=== PATIENT | female | born 1955 | race African-American/Black ===

== ENCOUNTER 2017-08-21 11:34 | Emergency (ER) | payer MEDICAID, OTHER ==
[2017-08-21 12:03] VITALS: BP 141/85
--- NOTE | 2017-08-21 12:21 | UC ---
Neck Pain HPI - HPI Summary HPI Summary: 62 year old female with neck pain. c/o of stiff neck for the past 3 days. She states and demonstrates the inability to turn her head to either side also to flex or extend her neck. Denies any recent illness or fever, injury, trauma or any activities that would strain her neck. Pt feels "I have slept wrong, I have a special pillow and must have not slept on it right". she does state a past hx of stiff neck . Also c/o of posterior headache since she woke up this morning. [ End ] - History of Current Complaint Chief Complaint: UCBackPain Stated Complaint: NECK STIFFNESS Time Seen by Provider: 08/21/17 12:07 Hx Obtained From: Patient Mechanism Of Injury: No Known Trauma Timing: Intermittent Episodes Onset/Duration: Sudden Onset Severity: Severe Pain Intensity: 10 Character: Spasmotic Aggravating Factors: Movement Alleviating Factors: Nothing Associated Signs & Symptoms: Positive: Negative Related History: Similar Episode/Dx As: - 2 years ago - Risk Factors Risk Factors For Cervical Spine Injury: Posterior Midline Cervical Spine Tenderness - Allergies/Home Medications Allergies/Adverse Reactions: Allergies Allergy/AdvReac Type Severity Reaction Status Date / Time No Known Allergies Allergy Verified 08/21/17 12:04 Home Medications: Home Medications Acetaminophen [Acetaminophen Extra Strength] 1,000 mg PO ONCE 08/21/17 [History Confirmed 08/21/17] PMH/Surg Hx/FS Hx/Imm Hx Previously Healthy: Yes - Surgical History Surgical History: Yes Surgery Procedure, Year, and Place: x 3 - Family History Known Family History: Positive: Diabetes - Social History Lives: With Family Alcohol Use: None Substance Use Type: Marijuana Substance Use Comment - Amount & Last Used: occ usage Smoking Status (MU): Heavy Every Day Tobacco Smoker Type: Cigarettes Amount Used/How Often: 1/2 ppd Length of Time of Smoking/Using Tobacco: since age 16 Have You Smoked in the Last Year: Yes Review Of Systems Musculoskeletal: Positive: Arthralgia, Decreased ROM All Other Systems Reviewed And Are Negative: Yes Physical Exam Triage Information Reviewed: Yes Appearance: Well-Appearing, Well-Nourished, Pain Distress - mild Vital Signs: Initial Vital Signs Temp 97.9 F 08/21/17 11:52 Pulse 63 08/21/17 11:52 Resp 16 03/31/18 11:52 BP 141/85 08/21/17 11:52 Pulse Ox 100 08/21/17 11:52 Vital Signs Reviewed: Yes Respiratory Exam: Normal Cardiovascular Exam: Normal Musculoskeletal: Positive: ROM Limited @ - reduction in ROM in all directions. tenderness to palpation diffusely posterior cervical spine/ paraspinals / SCM . Neurological Exam: Normal Neurological: Positive: Abnormal Muscle Tone - hypertonic in c spine. no low back pain. no tenderness to spine in the lumbar region. Psychological Exam: Normal Skin Exam: Normal Diagnostics - Laboratory Diagnostic Studies Completed/Ordered: IMPRESSION: Degenerative spondylosis and facet joint osteoarthritis. read by rads Neck Pain Course/Dx - Course Course Of Treatment: APAP/Heat/flexeril prn (aware of SE) - f/u PCP to discuss PT . IMPRESSION: Degenerative spondylosis and facet joint osteoarthritis on xray and read by rads - Differential Dx/Diagnosis Differential Dx/HQI/PQRI: Arthritis, Cervical Fracture, Sprain, Strain, Torticollis Provider Diagnoses: cervical spine muscle spasms Discharge - Sign-Out/Discharge Documenting (check all that apply): Discharge - Discharge Plan Condition: Good Disposition: HOME Prescriptions: Cyclobenzaprine TAB* [Flexeril 10 MG TAB*] 10 mg PO BID PRN #20 tab PRN Reason: Spasms Patient Education Materials: Cervical Strain (ED) Referrals: AIDAN Hale [Primary Care Provider] - 4 Days - Billing Disposition and Condition Condition: GOOD Disposition: HOME
--- NOTE | 2017-08-21 12:54 | RAD ---
Indication: 3 days neck pain and decreased range of motion. Comparison: No relevant prior exams available on the [facility] PACS for comparison. Technique: AP, open-mouth odontoid, and lateral views cervical spine. Report: Normal cervical spine alignment. Negative for fracture. Multilevel degenerative spondylosis. Advanced disc space narrowing at C5-C6 and C6-C7 with associated reactive subchondral sclerosis. Multilevel predominant mild facet joint osteoarthritis. Unremarkable prevertebral soft tissue contours. IMPRESSION: Degenerative spondylosis and facet joint osteoarthritis.
== END 2017-08-21 13:11 | disposition home or self-care (01) ==
LOC: UCCORT 11:34
DX: M62.838 Other muscle spasm (principal); F17.210 Nicotine dependence, cigarettes, uncomplicated
CPT/HCPCS: 72040; 99212; G0463

== ENCOUNTER 2017-10-08 10:45 | Emergency (ER) | payer OTHER ==
[2017-10-08 11:11] VITALS: BP 155/91
[2017-10-08] MEDS ORDERED: Cyclobenzaprine TAB* 10 MG PO ONE (11:32)
--- NOTE | 2017-10-08 11:40 | ED ---
Neck Pain - HPI Summary HPI Summary: 62 yr old female with the complaint of neck pain. Onset of neck pain initially in July without any specific injuries. She felt she slept on it wrong then. She came here, had xrays showing DJD and was prescribed meds, never followed up with PMD. Took meds and it resolved after a few days. For two days now she has the same symptoms again. She feels like she slept wrong, her neck hurts her worse with moving her head side to side or flex/ extend. No falls, accidents. No fever or chills. She has pain that is moderate, feels like stiffness. No bowel or bladder incontinence. No focal neurological deficits. - History of Current Complaint Chief Complaint: UCBackPain Stated Complaint: NECK PAIN Time Seen by Provider: 10/08/17 11:17 Pain Intensity: 10 - Allergies/Home Medications Allergies/Adverse Reactions: Allergies Allergy/AdvReac Type Severity Reaction Status Date / Time No Known Allergies Allergy Verified 10/08/17 11:11 PMH/Surg Hx/FS Hx/Imm Hx - Surgical History Surgery Procedure, Year, and Place: x 3 Infectious Disease History: No Infectious Disease History: Denies: Traveled Outside the [place] in Last 30 Days - Family History Known Family History: Positive: Diabetes - Social History Occupation: Employed Full-time Alcohol Use: None Substance Use Type: Reports: Marijuana Substance Use Comment - Amount & Last Used: occ usage Smoking Status (MU): Heavy Every Day Tobacco Smoker Type: Cigarettes Amount Used/How Often: 1/2 ppd Length of Time of Smoking/Using Tobacco: since age 16 Have You Smoked in the Last Year: Yes Review of Systems Constitutional: Negative Positive: Other - neck pain All Other Systems Reviewed And Are Negative: Yes Physical Exam Triage Information Reviewed: Yes Vital Signs On Initial Exam: Initial Vitals Temp Pulse Resp BP Pulse Ox 98.1 F 64 16 155/91 99 10/08/17 10:59 10/08/17 10:59 10/08/17 10:59 10/08/17 10:59 10/08/17 10:59 Vital Signs Reviewed: Yes Appearance: Positive: Well-Appearing, Well-Nourished Skin: Positive: Skin Color Reflects Adequate Perfusion Head/Face: Positive: Normal Head/Face Inspection Eyes: Positive: EOMI ENT: Positive: Normal ENT inspection Neck: Positive: Supple, Tenderness @ - c spine about levels 4/5/6, no step off, no obvious swelling. Respiratory/Lung Sounds: Positive: Clear to Auscultation, Breath Sounds Present Cardiovascular: Positive: RRR. Negative: Murmur Abdomen Description: Positive: Nontender Musculoskeletal: Positive: Strength/ROM Intact Neurological: Positive: Sensory/Motor Intact, Alert, Oriented to Person Place, Time, CN Intact II-III, Normal Gait, Speech Normal Psychiatric: Positive: Normal - Randa Coma Scale Best Eye Response: 4 - Spontaneous Best Motor Response: 6 - Obeys Commands Best Verbal Response: 5 - Oriented Coma Scale Total: 15 Diagnostics - Vital Signs Vital Signs Temp Pulse Resp BP Pulse Ox 10/08/17 10:59 98.1 F 64 16 155/91 99 - Laboratory Lab Statement: Any lab studies that have been ordered have been reviewed, and results considered in the medical decision making process. - CT cervical spine CT Interpretation: Positive (See Comments) - DJD and spinal stenosis multiple levels. CT Interpretation Completed By: Radiologist Neck Course/Dx - Course Course Of Treatment: 62 yr old with DJD and multiple levels of spinal stenosis. Recommend FU with PMD , ortho referral and BP recheck. - Diagnoses Provider Diagnoses: Hypertension, DJD (degenerative joint disease), cervical Discharge - Sign-Out/Discharge Documenting (check all that apply): Discharge/Admit/Transfer - Discharge Plan Condition: Good Disposition: HOME Prescriptions: Cyclobenzaprine TAB* [Flexeril 10 MG TAB*] 10 mg PO BID PRN #10 tab PRN Reason: Pain Patient Education Materials: Hypertension (ED), Cervical Spinal Stenosis (ED), Arthritis (ED) Referrals: AIDAN Hale [Primary Care Provider] - 2 Days Noe Kinsey MD [Medical Doctor] - - Billing Disposition and Condition Condition: GOOD Disposition: HOME
--- NOTE | 2017-10-08 11:53 | RAD ---
HISTORY: Pain, neck pain COMPARISONS: None TECHNIQUE: Multiple contiguous axial CT scans were obtained of the cervical spine without intravenous contrast, with coronal and sagittal multiplanar reformations. FINDINGS: BRAIN: The visualized brain is unremarkable CENTRAL CANAL: Evaluation of the central canal is limited on CT technique; however, there is no obvious canalicular mass or epidural hemorrhage. ALIGNMENT: The alignment is normal, without subluxation or dislocation. VERTEBRAL BODIES: There is anterolateral marginal osteophyte formation most pronounced at C5-C6 and C6-C7. JOINTS: There is diffuse uncovertebral and facet osteoarthritis MUSCULATURE: Unremarkable INTERVERTEBRAL DISCS: There is diffuse loss of intervertebral disc height. AXIAL IMAGES: C2-C3: There is no osseous neural foraminal narrowing or central canal stenosis. C3-C4: There is a central disc protrusion measuring 0.3 cm in depth. There is no significant neural foraminal narrowing or central canal stenosis C4-C5: There is left greater on the right facet hypertrophy. There is moderate left neural foraminal narrowing. There is no central canal stenosis. C5-C6: There is a broad-based disc osteophyte complex with bilateral uncovertebral and facet hypertrophy. There is severe bilateral neural foraminal narrowing. There is moderate narrowing of the central canal. C6-C7: There is a broad-based disc osteophyte complex with bilateral uncovertebral and facet hypertrophy. There is severe bilateral neural foraminal narrowing. There is mild narrowing of the central canal. C7-T1: There is no osseous neural foraminal narrowing or central canal stenosis. SOFT TISSUES: The visualized soft tissues of the neck are unremarkable. The prevertebral fat stripe is preserved. OTHER: None. IMPRESSION: 1. DEGENERATIVE DISC DISEASE AND OSTEOARTHRITIS. 2. THERE IS MODERATE NARROWING OF THE CENTRAL CANAL AT C5-C6 WITH MILD NARROWING AT C6-C7. 3. THERE IS A CENTRAL DISC PROTRUSION AT C3-C4. 4. THERE IS MULTILEVEL NEURAL FORAMINAL NARROWING DESCRIBED ABOVE.
== END 2017-10-08 12:43 | disposition home or self-care (01) ==
LOC: UCCORT 10:45
DX: M47.812 Spondylosis without myelopathy or radiculopathy, cervical region (principal); M50.323 Other cervical disc degeneration at C6-C7 level; M50.21 Other cervical disc displacement, high cervical region; I10 Essential (primary) hypertension; F17.210 Nicotine dependence, cigarettes, uncomplicated
CPT/HCPCS: 72125; 99212; A9270-GY; G0463

== ENCOUNTER 2018-09-07 11:02 | Emergency (ER) | payer OTHER ==
[2018-09-07 12:09] VITALS: BP 130/85
--- NOTE | 2018-09-07 12:43 | UC ---
Skin Complaint HPI - HPI Summary HPI Summary: 63-year-old woman comes in with a chief complaint of generalized itching and rash. This all started 2 weeks ago. Patient had taken 2 days worth of prednisone for arthritis in her neck and several days after stopping the prednisone the Sx started. It is generalized on abdomen chest back arms and legs. She reports that years ago she had scabies and this reminds her of scabies. No fevers or chills. Normal bowel and urine patient feels normal and well otherwise. Is not on any other medications. She recently used a new body lotion that did make her itch. She stopped using that right away and has been more than 2 weeks. No sore throat or shortness of breath. - History of Current Complaint Chief Complaint: UCSkin Time Seen by Provider: 09/07/18 12:28 Stated Complaint: SKIN COMPLAINT Pain Intensity: 0 - Allergy/Home Medications Allergies/Adverse Reactions: Allergies Allergy/AdvReac Type Severity Reaction Status Date / Time No Known Allergies Allergy Verified 09/07/18 12:04 PMH/Surg Hx/FS Hx/Imm Hx Previously Healthy: Yes - Surgical History Surgical History: Yes Surgery Procedure, Year, and Place: x 3 - Family History Known Family History: Positive: Diabetes - Social History Alcohol Use: None Substance Use Type: Marijuana Substance Use Comment - Amount & Last Used: daily Smoking Status (MU): Heavy Every Day Tobacco Smoker Type: Cigarettes Amount Used/How Often: 1/2 ppd Length of Time of Smoking/Using Tobacco: since age 16 Have You Smoked in the Last Year: Yes Review of Systems All Other Systems Reviewed And Are Negative: Yes Constitutional: Positive: Negative Skin: Positive: Other - see hpi Eyes: Positive: Negative ENT: Positive: Negative Respiratory: Positive: Negative Cardiovascular: Positive: Negative Gastrointestinal: Positive: Negative Genitourinary: Positive: Negative Motor: Positive: Negative Neurovascular: Positive: Negative Musculoskeletal: Positive: Negative Neurological: Positive: Negative Psychological: Positive: Negative Is Patient Immunocompromised?: No Physical Exam Triage Information Reviewed: Yes Appearance: Well-Appearing, No Pain Distress, Well-Nourished Vital Signs: Initial Vital Signs Temp 97.5 F 09/07/18 12:05 Pulse 75 09/07/18 12:05 Resp 16 09/07/18 12:05 BP 130/85 09/07/18 12:05 Pulse Ox 100 09/07/18 12:05 Vital Signs Reviewed: Yes Eye Exam: Normal Eyes: Positive: Conjunctiva Clear Neck: Positive: Supple Respiratory: Positive: No respiratory distress Musculoskeletal Exam: Normal Musculoskeletal: Positive: Strength Intact, ROM Intact Neurological Exam: Normal Neurological: Positive: Alert, Muscle Tone Normal Psychological Exam: Normal Psychological: Positive: Age Appropriate Behavior Skin: Positive: Other - Patient reports that she is diffusely puritic. She uses her hands to scratch her whole body during the exam. She does have some superficial excoriations. Other than that I do not perceive any rash. Course/Dx - Course Course Of Treatment: We discussed the different possibilities of causes for the rash to include the possibility of problems with her kidneys or hematologic causes. We discussed treating with Elimite to see if that did help. She will stress Benadryl. We also discussed getting lab work done. At this time the patient prefers to not get lab work done and she wants to try the Elimite. Plan is if she does not improve she will follow-up with her private primary care doctor or with dermatology. I did let her know that if she felt worse she needed to get reevaluated again right away. - Diagnoses Provider Diagnosis: Genital pruritus Discharge - Sign-Out/Discharge Documenting (check all that apply): Patient Departure All imaging exams completed and their final reports reviewed: No Studies - Discharge Plan Condition: Stable Disposition: HOME Prescriptions: Permethrin [Elimite] 30 gm TOPICAL ONCE #60 gm Patient Education Materials: Acute Rash (ED), Itchy Skin (ED) Referrals: [facility] [Outside] Nelson Tolliver MD [Medical Doctor] - Additional Instructions: FOLLOW UP WITH YOUR PRIMARY CARE DOCTOR OR DERMATOLOGY IF NOT COMPLETELY IMPROVED. GET REEVALUATED SOONER IF YOUR CONDITION WORSENS OR ANY QUESTIONS OR CONCERNS. - Billing Disposition and Condition Condition: STABLE Disposition: Home
== END 2018-09-07 12:49 | disposition home or self-care (01) ==
LOC: UCCORT 11:02
DX: L29.8 Other pruritus (principal)
CPT/HCPCS: 99212; G0463